=== PATIENT | male | born 1970 | race Caucasian/White ===

== ENCOUNTER → 2016-11-17 | Outpatient (CLI) | payer BC ==
[~2016-11-17] MED LIST: LEVAQUIN 750MG750 M1 PO; NEXIUM 40MG40 MG PO
== END ==
LOC: COL.RAD 13:15
DX: M79.645 Pain in left finger(s) (principal); M13.842 Other specified arthritis, left hand
CPT/HCPCS: J3301; Q9967

== ENCOUNTER → 2017-06-27 | Outpatient (CLI) | payer BC | LOC: COL.RAD 06-22 14:00 | DX: M18.12 Unilateral primary osteoarthritis of first carpometacarpal joint, left hand (principal) | CPT/HCPCS: J3301; Q9967 ==